=== PATIENT | female | born 1995 | race African-American/Black ===

== ENCOUNTER 2017-01-26 18:19 | Emergency (ER) | payer MEDICAID, OTHER ==
[~2017-01-26] VITALS: Ht 142.2 cm; Wt 57.0 kg
[2017-01-26 18:44] VITALS: BP 124/63
== END 2017-01-26 23:00 | disposition left against medical advice (07) ==
LOC: ER 22:04
DX: N89.8 Other specified noninflammatory disorders of vagina (principal)
CPT/HCPCS: 99283